=== PATIENT | female | born 1940 | race Caucasian/White ===

== ENCOUNTER 2018-01-26 12:13 | Outpatient (CLI) | payer MEDICARE ==
[2018-01-26 12:33] LABS: #Eosinphils 0.2 thou/uL (0.0-0.7); #Lymphocytes 1.4 thou/uL (1.20-3.40); #Monocytes 0.4 thou/uL (0.11-0.59); #Neutrophils 5.3 thou/uL (1.40-6.50); %Basophils 0.6 % (0.0-1.0); %Eosinophils 2.4 % (0.0-10.0); %Lymphocytes 19.6 % (21.0-51.0); %Monocytes 5.1 % (0.0-10.0); %Neutrophils 72.3 % (42.0-75.0); Hemoglobin 14.3 g/dL (12.0-16.0); Mean Platelet Volume 6.8 fL (7.4-10.4); Platelet Count 170 thou/uL (130-400); RBC Distribution Width 12.5 % (11.5-14.5); Red Blood Cell (RBC) Count 4.94 mill/uL (4.20-5.40); White Blood Cell (WBC) Count 7.3 thou/uL (4.8-10.8)
[2018-01-26 13:03] LABS: ALT (SGPT) 19 U/L (8-55); AST (SGOT) 16 U/L (5-34); Albumin 4.3 g/dL (3.4-4.8); Alkaline Phosphatase 89 U/L (40-150); Anion Gap 10 mmol/L (10-20); BUN (Urea Nitrogen) 10 mg/dL (9.8-20.1); Bilirubin, Total 1.3 mg/dL (0.2-1.2); Calc. Creatinine Clearance 0 mL/min (70-130); Carbon Dioxide 29 mmol/L (23-31); Chloride 104 mmol/L (98-107); Estimated GFR-MDRD 74; Globulin 3.2 g/dL (2.4-3.5); Glucose 99 mg/dL (83-110); Potassium 3.9 mmol/L (3.5-5.1); Protein, Total 7.5 g/dL (6.0-8.3); Sodium 139 mmol/L (136-145)
[2018-01-26] MEDS ORDERED: Iopamidol 370 76% 100 ML VIAL ONE (13:15)
--- NOTE | 2018-01-26 18:27 | CT ---
CT OF ABDOMEN AND PELVIS: Date: 01-26-18 Comparison: None. History: Left lower quadrant pain with diarrhea. Technique: Serial axial CT imaging at 5 mm intervals from lung bases through pubic symphysis with int ravenous and oral contrast. Coronal reformatted imaging obtained. FINDINGS: The imaged lung bases are unremarkable. No free intraperitoneal air is noted. Cholecystectomy clips are present. There are multiple low density lesions within the liver. This includes a 1.4 cm lesion within the rig ht lobe on Image 9, too small to characterize. In addition, there is a lobulated 3.8 cm lesion in the right lobe on Image 17, and a 5.7 cm lesion within the right lobe on Image 20, suggesting cysts. A 1 .2 cm lesion within the right lobe on Image 24 is noted, too small to characterize. Pancreas, spleen, adrenal glands, and kidneys demonstrate no acute findings. The appendix is visualized and is unremarkable. There is extensive scattered diverticula throughout t he colon. There is a segment of the sigmoid colon, best seen on axial Image 61 measuring approximatel y 7 cm in length, where there is pericolonic fat stranding and colonic wall thickening, evidence of a cute diverticulitis. There is a small area of adjacent soft tissue density on Image 60 which may repr esent phlegmonous changes measuring 1.6 cm. There is no abscess noted. No extraluminal gas or fluid s een. In addition, there is a segment of the descending colon which demonstrates wall thickening and p ericolonic fat stranding, measuring at least 12 cm in length, suggesting additional area of acute div erticulitis. No evidence for extraluminal gas/contrast or abscess seen in this region. There is scattered atherosclerotic calcification of the abdominal aorta and its branches. No lymphadenopathy is seen in the abdomen or pelvis. 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 There is significant multilevel lower lumbar spine facet hypertrophic change. IMPRESSION: 1. Two separate areas of colonic wall thickening and pericolonic fat stranding with numerous associat ed diverticula, evidence of acute diverticulitis involving the sigmoid colon and the descending colon . No drainable abscess. Recommend direct visualization via colonoscopy following treatment to exclude an underlying colonic lesion. Additional incidental findings as described above. 2. Code T-Dr. Aguila made aware at the time of interpretation. POS: [facility]
== END 2018-01-26 12:14 | disposition home or self-care (01) ==
LOC: CT 12:13
PROVIDERS: ATTEND Internal Medicine Gastroenterology
DX: K92.1 Melena (principal); R10.32 Left lower quadrant pain; R19.7 Diarrhea, unspecified; K57.32 Diverticulitis of large intestine without perforation or abscess without bleeding
CPT/HCPCS: 36415; 74177; 80053; 85025